=== PATIENT | male | born 1970 | race Caucasian/White ===

== ENCOUNTER 2025-04-23 07:24 | Emergency (ER) | payer OTHER, SELFPAY ==
[2025-04-23 07:42] VITALS: BP 144/99
--- NOTE | 2025-04-23 09:17 | ED.GENMED ---
History of Present Illness
General
Chief Complaint: Abdominal Pain
Source: patient
Exam Limitations: none
Time Seen by Provider: 04/23/25 08:50
Nursing documentation reviewed up to this point in time: agreed with
History of Present Illness
History of Present Illness:
Patient is a 55-year-old male who presents to the emergency department for evaluation of upper abdominal pain which woke him up at 5 AM this morning. Patient describes a constant dull ache which is located in his right upper abdomen radiating down
into his right mid abdomen. He denies any radiation into his back. No dysuria or hematuria. No associated fever, chills. He did have 1 episode of bilious vomitus once arriving to the emergency department. No diarrhea or constipation. No chest
pain or shortness of breath.
Patient states he ate a cheese steak for dinner last night around 5 PM and started to feel 'not great'after eating this. However�he did not have any pain until this morning.
No history of similar symptoms. No prior history of abdominal surgeries.
Review of Systems
Review of Systems
Allergies reviewed?: Yes
All Other Systems: ROS reviewed and negative except as documented in HPI and ROS
Phy Exam
Physical Exam
Physical Exam:
Vitals: Hypertensive, otherwise vital signs stable. Afebrile
General: Patient is well appearing, no acute distress
Skin: Warm and dry, no rashes or lesions
Head: Normocephalic, atraumatic
Eyes: Sclera nonicteric.
Throat: Protecting airway
Neck: Normal ROM, no cervical spine tenderness, no meningismus
Cardiac: Regular rate and rhythm, no murmurs.
Pulm: Normal respiratory effort, no wheezes, rales, rhonchi heard on exam
Abdomen: Abdomen soft. Mild tenderness in right upper abdomen/right mid abdomen. Negative Jarvis sign. No focal tenderness McBurney's point. No CVA tenderness
Extremities: No evidence of cyanosis or edema. 2+ palpable DP pulses bilaterally
Neuro: AAOx3. Grossly intact.
Psychiatric: Normal affect.
Course
Orders/Labs/Results
Orders:
Orders
04/23/25 09:07
0.9% Sodium Chloride 1000 ml [Nss] 1,000 ml IV BOLUS
Ketorolac [Toradol] 15 mg IV NOW STA
Ondansetron Injectable [Zofran] 4 mg IV NOW STA
US Abdomen Complete/Upper Urgent
Comment:
Reason For Exam: RUQ pain, +vomiting
04/23/25 09:24
Complete Blood Count/With Diff Urgent
Comprehensive Metabolic Panel Urgent
Lipase Urgent
04/23/25 10:52
Abdomen/Pelvis wo Contrast CT [CT Abd/pelvis Wo Iv Cont] Urgent
Comment:
Reason For Exam: Right flank pain
04/23/25 11:42
Urinalysis Reflex To Culture Urgent
Date Specimen was Collected: 04/23/25
Time Specimen was Collected: 11:39
Urine Microscopic Reflex Cult Urgent
04/23/25 13:11
Tamsulosin [Flomax] 0.4 mg PO NOW STA
Abnormal Lab Results
04/23/25 04/23/25
09:24 11:42
RBC 4.69 L 10^6/uL
(4.70-6.10)
MCH 32.0 H pg
(27.0-31.0)
MCHC 37.4 H g/dL
(33.0-37.0)
MPV 11.6 H fL
(7.4-10.4)
Absolute Lymphs (auto) 1.1 L 10^3/uL
(1.2-3.4)
Neutrophils % 78.5 H %
(42.2-75.2)
Lymphocytes % 13.3 L %
(20.5-51.1)
Glucose 119 H mg/dl
(70-99)
ALT 63 H U/L
(0-50)
Ur Occult Blood Reflex 2+ A
(Negative)
Urine RBC 7-10 A /HPF
(0-2)
Urine Bacteria (Reflex) Few A
(Negative)
Urine Albumin (Reflex) 1+ A
(Neg - Trace)
04/23/25 09:24
04/23/25 09:24
Vital Signs
Initial and Last Documented VS:
Initial Vital Signs
Temp Pulse Resp BP Pulse Ox
97.7 F 73 18 144/99 97
04/23/25 07:42 04/23/25 07:42 04/23/25 07:42 04/23/25 07:42 04/23/25 07:42
Last Documented Vital Signs
Temp Pulse Resp BP Pulse Ox
97.7 F 73 18 144/99 97
04/23/25 07:42 04/23/25 07:42 04/23/25 07:42 04/23/25 07:42 04/23/25 09:21
MDM/Problems Addressed
Differential Diagnosis Includes:
Not limited to: Biliary colic, acute cholecystitis, choledocholithiasis, pancreatitis, appendicitis, pyelonephritis, renal colic, etc.
MDM/Problems Addressed:
55-year-old male presenting with acute onset right upper abdominal pain associated w/ 1 episode of vomiting. No fever, shortness of breath, urinary symptoms. No history of similar symptoms. Patient hypertensive on arrival with otherwise stable
vital signs. He is afebrile. On exam�patient appears well appearing and nontoxic. Abdomen is soft with mild reproducible tenderness in right upper quadrant. No focal tenderness at McBurney's point. Negative Jarvis sign. No CVA tenderness.
Cardio/pulmonary assessment unremarkable
Differential broad. Symptoms do seem somewhat consistent biliary etiology. Other considerations would be renal colic, pyelonephritis, appendicitis, diverticulitis, etc. ED plan: Check labs, treat symptoms. Will start with abdominal ultrasound
and reassess.
Update: Labs reviewed. No clinically significant abnormalities. Abdominal ultrasound shows no evidence of gallstones or acute cholecystitis however does note mild right-sided hydro. On reassessment�patient symptoms improved however questionable
renal colic. Will check UA and noncontrast CT scan abdomen/pelvis
Update: Urine shows 7�10 RBCs without evidence of acute infection. CT scan does show 3.5mm x 4.5mm obstructing stone in proximal right ureter. Patient's pain has remained well-controlled emergency department. No evidence of associated UTI. Feel
stable for discharge home with trial of stone passage outpatient. Patient would like to avoid all narcotic pain medication. Did advise Motrin, IV hydration. Will start Flomax. He will follow-up with urology for further management. Strict return
precautions discussed including any signs of infection.
Chronic conditions affecting care:
N/A
Acute Exacerbation and/or Progression of Chronic Illness:
N/A
*Radiology
Radiology exam reviewed: preliminary read by ED provider (Noncontrast CT reviewed by me which does reveal nonobstructing right ureteral stone) and radiology read reviewed
*Pulse Oximetry
SaO2: 97
Oxygen Mode of Delivery: Room air
Patient hypoxic: no
*EKG
Interpreted by ED Provider?: NA
*Veterans' Coordinator Interpretation
Rate: Veterans' Coordinator- N/A
*Critical Care Note
Total Time (30-74mins, 75-104mins- exclusive of procedures): Not Applicable
ED Attending Note
-
Portions of this chart may have been created with voice recognition software.� Occasional wrong word or��sound alike� substitutions may have occurred due to the inherent limitations of voice recognition software.
Discharge Plan
Departure
Patient Disposition: Home (Routine Discharge)
Date of Disposition: 04/23/25
Time of Disposition: 13:11
Patient with high blood pressure during this ER visit?: Yes
Condition: Good
Discharge Problem:
Right ureteral stone
Instructions: Kidney Stones (DC), BLOOD PRESSURE
Prescriptions:
New
tamsulosin [Flomax] 0.4 mg capsule
0.4 mg PO DAILY Qty: 14 0RF
ondansetron 4 mg tablet,disintegrating
4 mg PO TIDPRN PRN (Reason: nausea/vomiting) Qty: 5 0RF
ibuprofen 600 mg tablet
600 mg PO Q6H PRN (Reason: Pain) Qty: 10 0RF
Referrals:
Wade Cohen MD [Active, Urology] - Call in 1-3 days for appt
Paul Padron DO [Family Provider, Family Practice]
Activity Restrictions/Additional Instructions:
RETURN TO THE EMERGENCY DEPARTMENT ANY FEVER, INTRACTABLE NAUSEA/VOMITING, INTRACTABLE PAIN, SIGNIFICANT WEAKNESS, WORSENING CURRENT SYMPTOMS, OR ANY OTHER CONCERNS
- As discussed�your workup revealed a right-sided kidney stone which I suspect to be the cause of your symptoms today.
- It is important stay well-hydrated. You can take ibuprofen as needed for pain. A prescription for Zofran has been sent to your pharmacy you can take for intractable vomiting. Please take Flomax daily until you passed stone.
- It is important to strain your urine.
- Follow-up with urology for further evaluation/management. The contact information is been provided for you above.
Monitor your symptoms closely and return to the emergency department with any acute worsening/new symptoms or any signs of infection
Interventions
Interventions:
*Risk Screen - Suicide Last Done: 04/23/25 07:42
*Neglect/Abuse Screening Last Done: 04/23/25 07:42
*ED- Fall Risk Assessment Last Done: 04/23/25 11:47
*ED COVID-19 Vaccine History Last Done: 04/23/25 07:42
*Nursing Disposition Last Done: 04/23/25 13:26
VO-Tcumby-Tbdtvngaxc Assessment Last Done: 04/23/25 09:32
Discharge Date and Time
Discharge Date/Time: 04/23/25 13:26
Print Language: MALDIVIAN
[2025-04-23] MEDS: NSS 1000 IV (09:24)
[2025-04-23] MEDS: TORADOL 15 MG IV (09:25)
[2025-04-23] MEDS: ZOFRAN 4 MG IV (09:25)
[2025-04-23 09:46] LABS: Hematocrit 40.1 % (39.0-52.0); Hemoglobin 15.0 g/dL (13.0-18.0); Mean Corp Hgb Conc. 37.4 g/dL (33.0-37.0); Mean Corpuscular Volume 85.5 fL (80.0-94.0); Nucleated Red Blood Cells % 0 % (-); Platelet Count 221 10^3/uL (130-400); Red Cell Dist. Width 13.3 % (11.5-14.5)
[2025-04-23 10:02] LABS: ALT (SGPT) 63 U/L (0-50); AST (SGOT) 35 U/L (17-59); Albumin 4.0 g/dl (3.5-5.0); Alkaline Phosphatase 99 U/L (38-126); Blood Urea Nitrogen 16 mg/dl (9-20); Calcium 8.8 mg/dl (8.4-10.2); Carbon Dioxide 27 mmol/L (22-30); Chloride 107 mmol/L (98-107); Glucose 119 mg/dl (70-99); Lipase 40 U/L (23-300); Potassium 4.0 mmol/L (3.5-5.1); Sodium 139 mmol/L (135-145); Total Protein 6.6 g/dl (6.3-8.2); eGFR > 60.00
[2025-04-23 11:50] LABS: Urine Character Clear (Clear)
[2025-04-23 12:10] LABS: Urine Squamous Cell 0-2 /LPF (Few)
[2025-04-23 12:11] LABS: Urine White Cell 0-2 /HPF (0-5)
[2025-04-23] MEDS: FLOMAX 0.4 MG PO (13:21)
== END 2025-04-23 13:26 | disposition home or self-care (01) ==
LOC: EMR 07:24
PROVIDERS: Physician Assistant; EMERGENCY PHYSICIAN Student in an Organized Health Care Education/Training Program; FAMILY PHYSICIAN Family Medicine
DX: N13.2 Hydronephrosis with renal and ureteral calculous obstruction (principal)
CPT/HCPCS: 96374; 96375; 96361; 99284; 74176; 76700; 80053; 81003; 81015; 83690; 85025

== ENCOUNTER 2025-05-19 23:26 | Emergency (ER) | payer OTHER, SELFPAY ==
[2025-05-19 23:30] VITALS: BP 157/94
[2025-05-19 23:43] VITALS: BP 143/91
[2025-05-20] VITALS: BP 137/86
[2025-05-20 00:01] VITALS: BMI 27.7
[2025-05-20 00:01] LABS: Hematocrit 36.0 % (39.0-52.0); Hemoglobin 12.4 g/dL (13.0-18.0); Mean Corp Hgb Conc. 34.4 g/dL (33.0-37.0); Mean Corpuscular Volume 85.9 fL (80.0-94.0); Nucleated Red Blood Cells % 0 % (-); Platelet Count 222 10^3/uL (130-400); Red Cell Dist. Width 13.1 % (11.5-14.5)
[2025-05-20 00:24] LABS: ALT (SGPT) 28 U/L (0-50); AST (SGOT) 24 U/L (17-59); Albumin 4.1 g/dl (3.5-5.0); Alkaline Phosphatase 99 U/L (38-126); Blood Urea Nitrogen 15 mg/dl (9-20); Calcium 9.1 mg/dl (8.4-10.2); Carbon Dioxide 28 mmol/L (22-30); Chloride 104 mmol/L (98-107); Estimated Creatinine Clearance 59 ml/min; Glucose 98 mg/dl (70-99); Potassium 4.2 mmol/L (3.5-5.1); Sodium 138 mmol/L (135-145); Total Protein 6.9 g/dl (6.3-8.2); eGFR 58.99
--- NOTE | 2025-05-20 00:28 | ED.GENMED ---
History of Present Illness
General
Chief Complaint: Chest Pain
Source: patient
Exam Limitations: none
Time Seen by Provider: 05/20/25 00:06
Nursing documentation reviewed up to this point in time: agreed with
History of Present Illness
History of Present Illness:
55-year-old male with past medical history of asthma, ex smoking, GERD, presents emergency department today with concerns of chest pain. Patient reports that chest pain is unlike anything he has had before. He has had on and off starting last
night and it started in the upper abdomen but it progressed to the chest. The chest pain started at around 6 PM. He describes it as pressure-like dull sensation under his sternum and radiating to the back. Feels like the pain gets worse with deep
inhalation. He denies any recent long distance travel, any redness or swelling in his legs. The patient does have a history of heartburn and feels like these current symptoms are not his reflux. Patient does have a family history of heart
problems in his dad who had heart failure. He has no personal history of CAD. He is never been evaluated by telephone mechanic. He denies any dizziness lightheadedness, syncopal episodes. He denies any jaw pain or extremity pain.
Review of Systems
Review of Systems
All Other Systems: ROS reviewed and negative except as documented in HPI and ROS
Phy Exam
Physical Exam
Physical Exam:
General: Patient is well appearing and in no acute distress; non-toxic
Skin: Warm and dry, no rashes or lesions
Head: Normocephalic, atraumatic
Eyes: Sclera non-icteric. EOMs intact.
Cardiac: Regular rate and rhythm, no murmurs, no tenderness palpation of sternal chest wall
Peripheral Vascular: No lower extremity swelling or edema
Pulm: Normal respiratory effort, no wheezes, rales or rhonchi
Abdomen: No abdominal tenderness to palpation, no epigastric tenderness
Neuro: CN II-XII intact, no focal neurologic deficits.
Psychiatric: Appropriate mood and affect.
Scores
Heart Score for Chest Pain Patients
STEMI patient?: No
History: Moderately Suspicious
ECG: Normal
Age: >45 - <65 years
Risk Factors: 1 or 2 Risk Factors
Troponin: </= Normal Limit
Heart Score for Chest Pain Patients: 3
Heart Score Risk: 2.5% MACE over next 6 weeks
Course
Orders/Labs/Results
Orders:
Orders
05/19/25 23:28
EKG [Electrocardiogram (*1)] Urgent
Reason for Study: Chest Pain
EKG- Treatment ONCE
05/19/25 23:47
Cardiac Monitoring- Treatment ONCE
IV Insert/Care/Rem.- Treatment PRN
O2 Therapy [RESP] Urgent
Titrate/Wean O2 to maintain O2 sat greater than (%): 90
Special Instructions: Maintain sats >/=90%
Pulse Ox/spot Check [RESP] Urgent
Quantity: 1
Special Instructions: ON ROOM AIR
05/19/25 23:54
Complete Blood Count/With Diff Urgent
Comprehensive Metabolic Panel Urgent
Troponin I Urgent
05/20/25 00:30
D-Dimer Urgent
05/20/25 00:42
Aspirin 325 mg PO NOW STA
05/20/25 00:43
CR Chest - 2 Views Urgent
Comment:
Reason For Exam: chest pain
05/20/25 02:10
CT Chest PE Study Urgent
Comment:
Reason For Exam: pleuritic chest pain, elevated d dimer
05/20/25 02:40
Electrocardiogram (*1) Urgent
Reason for Study: Chest Pain
05/20/25 02:51
Troponin I Urgent
05/20/25 03:51
Ketorolac [Toradol] 15 mg IV NOW STA
Mag Hydrox/Al Hydrox/Simeth [Maalox] 30 ml Phenobarb/Hyoscy/Atropine/Scop [] 10 ml Viscous Lidocaine 2% [Xylocaine Viscous Cup] 10 ml PO NOW
05/20/25 03:59
Mag Hydrox/Al Hydrox/Simeth [Maalox] 30 ml .ROUTE .STK-MED ONE
Phenobarb/Hyoscy/Atropine/Scop [] 10 ml .ROUTE .STK-MED ONE
05/20/25 04:00
Viscous Lidocaine 2% [Xylocaine Viscous Cup] 15 ml .ROUTE .STK-MED ONE
Abnormal Lab Results
05/19/25 05/20/25
23:54 00:30
RBC 4.19 L 10^6/uL
(4.70-6.10)
Hgb 12.4 L g/dL
(13.0-18.0)
Hct 36.0 L %
(39.0-52.0)
MPV 10.5 H fL
(7.4-10.4)
Abs Immat Gran (auto) 0.1 H 10^3/uL
(0-0.05)
Absolute Neuts (auto) 7.1 H 10^3/uL
(1.4-6.5)
Absolute Monos (auto) 0.7 H 10^3/uL
(0.1-0.6)
Neutrophils % 75.8 H %
(42.2-75.2)
Lymphocytes % 14.8 L %
(20.5-51.1)
D-Dimer 0.65 H ug/mlFEU
(0.00-0.50)
Creatinine 1.4 H mg/dL
(0.7-1.3)
05/19/25 23:54
05/19/25 23:54
Vital Signs
Initial and Last Documented VS:
Initial Vital Signs
Temp Pulse Resp BP Pulse Ox
99.1 F 71 21 157/94 99
05/19/25 23:30 05/19/25 23:30 05/19/25 23:30 05/19/25 23:30 05/19/25 23:30
Last Documented Vital Signs
Temp Pulse Resp BP Pulse Ox
99.1 F 74 18 130/94 91
05/19/25 23:30 05/20/25 05:00 05/20/25 05:00 05/20/25 05:00 05/20/25 05:00
MDM/Problems Addressed
Differential Diagnosis Includes:
Differentials include GERD, ACS, PE, costochondritis, myocarditis, esophagitis
MDM/Problems Addressed:
55-year-old male with past medical history of asthma, GERD, presents to the ER today with concerns of chest pain. Substernal. It started this past evening. He has not taken anything for the pain. However, he has taken ibuprofen earlier in the
day for kidney stone which did not seem to help his pain right now. On physical exam he is well-appearing in no acute distress. His vitals are stable. CBC reviewed, no acute abnormalities. D-dimer is elevated. CMP no acute abnormalities.
Patient had unremarkable chest x-ray. He was sent for CAT scan which showed no evidence of PE no evidence of acute abnormality in the abdomen, no evidence of aortic dissection. Discussed findings with patient. Patient still does have chest pain.
Repeat troponin undetectable EKG remains not ischemic. Considering patient reports pain gets worse with lying down does radiate to the back, could suggest a component of esophagitis or GERD. Did try GI cocktail. She also tried Toradol to assess
for musculoskeletal etiology. After these medications, patient pain-free. Suspect component of esophagitis considering patient did have ibuprofen earlier today which did not help with his pain. Advised patient to follow-up with his PCP but more
portly be evaluated by cardiology. Patient's wrist understanding. Patient given referral for [facility] chest pain hotline. Patient stable for discharge. Reviewed case with ED attending.
*Pulse Oximetry
SaO2: 99
Oxygen Mode of Delivery: Room air
Patient hypoxic: no
*Critical Care Note
Total Time (30-74mins, 75-104mins- exclusive of procedures): Not Applicable
ED Attending Note
-
Portions of this chart may have been created with voice recognition software.� Occasional wrong word or��sound alike� substitutions may have occurred due to the inherent limitations of voice recognition software.
Discharge Plan
Departure
Patient Disposition: Home (Routine Discharge)
Date of Disposition: 05/20/25
Time of Disposition: 04:59
Patient with high blood pressure during this ER visit?: Yes
Condition: Good
Discharge Problem:
Chest pain
Instructions: Chest Pain DCA Follow Up, BLOOD PRESSURE
Prescriptions:
No Action
tamsulosin [Flomax] 0.4 mg capsule
0.4 mg PO DAILY Qty: 14 0RF
ondansetron 4 mg tablet,disintegrating
4 mg PO TIDPRN PRN (Reason: nausea/vomiting) Qty: 5 0RF
ibuprofen 600 mg tablet
600 mg PO Q6H PRN (Reason: Pain) Qty: 10 0RF
Referrals:
Paul Padron DO [Family Provider, Family Practice]
Juan Flores DO [Active, Cardiology] - Call in 1-3 days for appt
Activity Restrictions/Additional Instructions:
Please follow up with cardiology and your primary care provider.
As discussed, PLEASE RETURN TO THE ER SHOULD YOU DEVELOPED RETURN OF YOUR SYMPTOMS, SHORTNESS OF BREATH, REDNESS OR SWELLING IN HER LEGS, DIFFICULTY BREATHING, LIGHTHEADEDNESS, DIZZINESS, LOSS OF CONSCIOUSNESS, OR ANY OTHER SIGNS OR SYMPTOMS
WORRISOME TO YOU.
Interventions
Interventions:
*Risk Screen - Suicide Last Done: 05/19/25 23:30
*General Assessment Last Done: 05/19/25 23:44
*Neglect/Abuse Screening Last Done: 05/19/25 23:44
*ED- Fall Risk Assessment Last Done: 05/19/25 23:44
*ED COVID-19 Vaccine History Last Done: 05/19/25 23:44
*Nursing Disposition Last Done: 05/20/25 05:19
ED- Cardiac Assessment Last Done: 05/19/25 23:45
Discharge Date and Time
Discharge Date/Time: 05/20/25 05:21
Print Language: MALAGASY
[2025-05-20] MEDS: ASPIRIN 325 MG PO (01:02)
[2025-05-20 01:12] LABS: Troponin I < 0.012 ng/ml
[2025-05-20 01:49] LABS: D-Dimer 0.65 ug/mlFEU (0.00-0.50)
[2025-05-20 02:00] VITALS: BP 141/86
[2025-05-20 03:00] VITALS: BP 143/90
[2025-05-20 03:32] LABS: Troponin I < 0.012 ng/ml
[2025-05-20 04:00] VITALS: BP 138/96
[2025-05-20] MEDS: TORADOL 15 MG IV (04:02)
[2025-05-20] MEDS: MAALOX 50 PO (04:02)
[2025-05-20 05:00] VITALS: BP 130/94
== END 2025-05-20 05:21 | disposition home or self-care (01) ==
LOC: EMR 23:26
PROVIDERS: Physician Assistant; EMERGENCY PHYSICIAN Student in an Organized Health Care Education/Training Program; FAMILY PHYSICIAN Family Medicine
DX: R07.9 Chest pain, unspecified (principal); J45.909 Unspecified asthma, uncomplicated; Z87.891 Personal history of nicotine dependence
CPT/HCPCS: 99285; 96374; 71046; 71275; 80053; 84484; 85025; 85379; 93005; Q9967

== ENCOUNTER → 2025-06-01 11:30 | Outpatient (REF) | payer OTHER, SELFPAY | LOC: HWRAD 11:30 | PROVIDERS: ATTENDING PHYSICIAN Specialist; FAMILY PHYSICIAN Family Medicine | DX: N20.1 Calculus of ureter (principal) | CPT/HCPCS: 76770 ==

== ENCOUNTER → 2025-07-06 11:32 | Outpatient (REF) | payer OTHER, SELFPAY | LOC: HWRAD 11:32 | PROVIDERS: ATTENDING PHYSICIAN Specialist; FAMILY PHYSICIAN Family Medicine | DX: N20.1 Calculus of ureter (principal) | CPT/HCPCS: 74176 ==